=== PATIENT | male | born 2000 | race African-American/Black ===

== ENCOUNTER 2024-02-24 10:16 | Emergency (ER) | payer BC, SELFPAY ==
[2024-02-24 10:32] VITALS: BP 116/71; PULSE 68; RESP 20; TEMP 37.1; O2SAT 100
--- NOTE | 2024-02-24 11:00 | ED.URI ---
HPI - URI/Sore Throat General Chief Complaint: Upper Respiratory Infection Stated Complaint: dizzy,cough,headache,loss of taste,covid test Time Seen by Provider: 02/24/24 11:00 Source: patient and RN notes reviewed Mode of arrival: ambulatory Limitations: no limitations History of Present Illness HPI Narrative: 23-year-old male presented for complaint of headache, body aches, sinus pressure/congestion, cough. Onset 2 days. Lost sense of taste today. Pt not taking anything for symptoms. He states his work is requesting test results. MD elicited complaint: cough Related Data Allergies Allergy/AdvReac Type Severity Reaction Status Date / Time No Known Allergies Allergy Verified 02/24/24 10:34 Review of Systems Review of Systems: CONSTITUTIONAL: Endorses malaise, denies chills, sweats, fever EYES: Denies visual changes, redness, or discharge ENT: Reports rhinorrhea, congestion, denies otalgia, sore throat CARDIOVASCULAR: Denies chest pain, palpitations, edema RESPIRATORY: Reports cough, post nasal drainage. Denies dyspnea GASTROINTESTINAL: Denies abdominal pain, nausea, vomiting, diarrhea SKIN: Denies rash or itching MUSCULOSKELETAL: Endorses myalgia NEUROLOGIC: Endorses headache Exam Narrative: GENERAL: well-appearing, nontoxic no acute distress. EYES: PERRLA, conjunctivae clear ENT: Mucous membranes moist. TM pearly gold with dull light reflex bilaterally; no tragal tenderness. No tripod positioning, muffled voice, soft palate or pharyngeal wall bulging NECK: Supple. No lymphadenopathy CHEST: Clear to auscultation, breath sounds equal. No wheezing, rhonchi, rales, or stridor. No respiratory distress, speaks in full sentences. HEART: Regular rate and rhythm. No murmur heard. SKIN: Warm, dry, no rash. NEURO: Alert and oriented x3. PSYCH: Normal mood and affect Course Course Emergency Course: Patient is aware of diagnosis, understands and agrees to treatment plan. Anticipatory guidance given. Patient agrees to follow-up as directed and is aware of reasons to seek care at the emergency department. Portions of this record may have been created with voice recognition software Level of Care: Express Care Visit Vital Signs Vital signs: Vital Signs Temperature 98.7 F 02/24/24 10:32 Pulse Rate 68 02/24/24 10:32 Respiratory Rate 20 02/24/24 10:32 Blood Pressure 116/71 02/24/24 10:32 Pulse Oximetry 100 02/24/24 10:32 Oxygen Delivery Room Air 02/24/24 10:32 Temperature 98.7 F 02/24/24 10:32 Pulse Rate 68 02/24/24 10:32 Respiratory Rate 20 02/24/24 10:32 Blood Pressure 116/71 02/24/24 10:32 Pulse Oximetry 100 02/24/24 10:32 Oxygen Delivery Room Air 02/24/24 10:32 reviewed MDM - URI/Sore Throat MDM Narrative Medical decision making narrative: results of COVID test reviewed with patient. Discussed physical exam findings. Advised supportive measures and signs/symptoms to go to the ER. Pt is appropriate for outpt treatment and f/u. Differential Diagnosis Differential diagnosis: Likely upper respiratory infection, sinusitis and viral infection Lab Data Labs: Lab Results 02/24/24 Range/Units 11:00 POC SARS CoV-2 Ag Positive (Negative) Discharge Plan Discharge Clinical Impression: COVID-19 Patient Disposition: Home, Self-Care Condition: Stable Instructions: Antibiotic Form, COVID-19 (Coronavirus Disease 2019) (ED) Additional Instructions: Your rapid COVID test was positive today. The following updated recommendations have been made by the CDC and local Health Departments, regarding COVID-19: - When people get sick with a respiratory virus, they stay home and away from others. - Return to normal activities when, for at least 24 hours, symptoms are improving overall, and if a fever was present, it has been gone without use of a fever-reducing medication. - Once people resume normal activities, they are encouraged to take addit
== END 2024-02-24 11:22 | disposition home or self-care (01) ==
PROVIDERS: Emergency Provider Nurse Practitioner Family; PCP Emergency Medicine
DX: U07.1 COVID-19 (principal)
CPT/HCPCS: 87426; 99212; G0463